=== PATIENT | male | born 1945 ===

== ENCOUNTER 2021-08-08 11:30 | Inpatient (IN) | payer OTHER ==
[~2021-08-08] VITALS: Ht 165.1 cm; Wt 73.9 kg
[~2021-08-08 11:30] MED LIST: AMLODIPINE BESY10 MG PO
[2021-08-14] MEDS ORDERED: ANTI-GAS166 MG PO (10:43)
[2021-08-14] MEDS ORDERED: PRILOSEC OTC20 MG PO (10:43)
[2021-08-14] MEDS ORDERED: ACETAMINOPHEN500 M2 PO (10:43)
== END 2021-08-14 12:38 | disposition home or self-care (01) | DRG 330 ==
LOC: ADM 11:30 → EDSTATUS 11:30 → SURH 08-09 07:00 → O/R 08-09 09:40 → SURH 08-09 11:30 → SURG 08-10 08:19
PROVIDERS: ADMIT Surgery; ATTEND Surgery
PROC: 0DTP0ZZ Resection of Rectum, Open Approach (ICD-10-PCS; 2021-08-09)
PROC: 07BB0ZZ Excision of Mesenteric Lymphatic, Open Approach (ICD-10-PCS; 2021-08-09)
PROC: 0DBU0ZZ Excision of Omentum, Open Approach (ICD-10-PCS; 2021-08-09)
PROC: 0D1B0Z4 Bypass Ileum to Cutaneous, Open Approach (ICD-10-PCS; principal; 2021-08-09 07:00)
DX: C19 Malignant neoplasm of rectosigmoid junction (principal); C18.4 Malignant neoplasm of transverse colon; R59.0 Localized enlarged lymph nodes; D12.5 Benign neoplasm of sigmoid colon; R93.5 Abnormal findings on diagnostic imaging of other abdominal regions, including retroperitoneum; I11.9 Hypertensive heart disease without heart failure; Z20.822 Contact with and (suspected) exposure to COVID-19

== ENCOUNTER 2021-09-10 06:00 | Day surgery (SDC) | payer OTHER ==
[~2021-09-10 06:00] MED LIST changes: +ACETAMINOPHEN500 M2 PO; +ANTI-GAS166 MG PO; +PRILOSEC OTC20 MG PO
[2021-09-10] MEDS ORDERED: ULTRACET PO (11:22)
== END 2021-09-10 13:50 | disposition home or self-care (01) ==
LOC: CIR.AMB 06:00
PROVIDERS: ATTEND Surgery
DX: C18.4 Malignant neoplasm of transverse colon (principal)

== ENCOUNTER 2022-09-19 05:25 | Day surgery (SDC) | payer OTHER ==
[~2022-09-19 05:25] MED LIST changes: +ULTRACET PO
[2022-09-19] MEDS ORDERED: DICLOFENAC SODI75 MG PO (09:43)
== END 2022-09-19 12:10 | disposition home or self-care (01) ==
LOC: CIR.AMB 05:25
PROVIDERS: ATTEND Surgery
DX: C19 Malignant neoplasm of rectosigmoid junction (principal); Z20.822 Contact with and (suspected) exposure to COVID-19; I10 Essential (primary) hypertension